=== PATIENT | male | born 1985 | race Two or more races ===

== ENCOUNTER 2021-01-05 14:25 | Observation (INO) ==
--- NOTE | 2021-01-05 14:55 | Emergency Department Note ---
History of Present Illness General Chief complaint: Abdominal Pain Stated complaint: ABD PAIN, REF'D BY DOC Time Seen by Provider: 01/05/21 14:37 History of Present Illness 35-year-old male who presents to the emergency department with outpatient CT scans showing evidence for an uncomplicated appendicitis. The patient reports that he has had right lower quadrant discomfort for many years. He was diagnosed with appendicitis and [place], and treated with antibiotics. For the past week, it has become progressively worsened and more painful with fever and chills over the past few days. He was seen at [facility] where a CT scan was ordered, and later performed at our facility. Dr. Marin, general surgeon on-call, has already been made aware of the situation. The patient rates his discomfort a 4 out of 10. Patient denies history of antibiotic allergies. He did have a negative COVID-19 test 2 days ago. Home Medications Medication Instructions Recorded Confirmed Type No Known Home Medications 01/05/21 01/05/21 History Allergies Allergy/AdvReac Type Severity Reaction Status Date / Time No Known Allergies Allergy Verified 01/05/21 14:52 Past Med/Surg History Medical History No significant past medical history Surgical History No significant past surgical history Social History Smoking Status: Never smoker marital status: Current Living Situation: Spouse and Family current occupational status: employed Feels Safe at Home: Yes Review of Systems 10 system review was performed and was negative except for pertinent positives and negatives as indicated in history of present illness Physical Exam Vital Signs Vital Signs - 24 hr 01/05/21 14:35 01/05/21 16:17 01/05/21 18:17 Temperature 36.8 C Temperature Source Oral Pulse Rate 84 Pulse Rate [Apical] Pulse Rate [Right Finger] 71 53 L Pulse Rhythm [Apical] Pulse Rhythm [Right Finger] Regular Regular Pulse Strength [Right Finger] Normal Normal Respiratory Rate 18 20 20 Respiratory Effort / Characteristics Non-Labored Spontaneous Non-Labored Spontaneous Respiratory Depth Normal Normal Respiratory Pattern Regular Regular Blood Pressure 130/70 Blood Pressure [Left Arm] Blood Pressure [Right Arm] 104/81 112/72 Blood Pressure Mean 90 Blood Pressure Mean [Left Arm] Blood Pressure Mean [Right Arm] 88 85 Blood Pressure Position [Left Arm] Blood Pressure Position [Right Arm] Sitting Sitting Pulse Oximetry 98 97 98 Oxygen Delivery Method Room Air Room Air Room Air Sepsis Recent Fever Within 48 Hours No Sepsis New/Unexplained Change in Mental Status No Sepsis Action Taken by Nursing No Action Required 01/05/21 21:27 01/05/21 21:35 01/05/21 21:45 Temperature 36.4 C L 36.5 C Temperature Source Axillary Axillary Pulse Rate Pulse Rate [Apical] 65 53 L 55 L Pulse Rate [Right Finger] Pulse Rhythm [Apical] Regular Regular Regular Pulse Rhythm [Right Finger] Pulse Strength [Right Finger] Respiratory Rate 14 18 18 Respiratory Effort / Characteristics Non-Labored Spontaneous Non-Labored Spontaneous Non-Labored Spontaneous Respiratory Depth Normal Normal Normal Respiratory Pattern Regular Regular Regular Blood Pressure Blood Pressure [Left Arm] 116/74 111/69 112/64 Blood Pressure [Right Arm] Blood Pressure Mean Blood Pressure Mean [Left Arm] 88 83 80 Blood Pressure Mean [Right Arm] Blood Pressure Position [Left Arm] Lying Lying Lying Blood Pressure Position [Right Arm] Pulse Oximetry 97 96 96 Oxygen Delivery Method Room Air Room Air Room Air Sepsis Recent Fever Within 48 Hours Sepsis New/Unexplained Change in Mental Status Sepsis Action Taken by Nursing 01/05/21 21:55 Temperature 36.5 C Temperature Source Axillary Pulse Rate Pulse Rate [Apical] 58 L Pulse Rate [Right Finger] Pulse Rhythm [Apical] Regular Pulse Rhythm [Right Finger] Pulse Strength [Right Finger] Respiratory Rate 18 Respiratory Effort / Characteristics Non-Labored Spontaneous Respiratory Depth Normal Respiratory Pattern Regular Blood Pressure Blood Pressure [Left Arm] 105/66 Blood Pressure [Right Arm] Blood Pressure Mean Blood Pressure Mean [Left Arm] 79 Blood Pressure Mean [Right Arm] Blood Pressure Position [Left Arm] Lying Blood Pressure Position [Right Arm] Pulse Oximetry 96 Oxygen Delivery Method Room Air Sepsis Recent Fever Within 48 Hours Sepsis New/Unexplained Change in Mental Status Sepsis Action Taken by Nursing CONSTITUTIONAL: Healthy and well nourished. Patient does not appear in any acute distress. HEENT: Normocephalic, atraumatic. Pupils equal, round and reactive. No scleral icterus or conjunctival injection/pallor. NECK: Full active range of motion without discomfort. LYMPHATICS: No cervical chain adenopathy. RESPIRATORY: Clear to auscultation bilaterally with no wheezing, crackles, rhonchi or stridor. CARDIOVASCULAR: Regular rate and rhythm with no murmurs, rubs or gallops. GASTROINTESTINAL: Bowel sounds present in all quadrants. Patient has positive McBurney's point tenderness. Negative CVA tenderness. No abdominal rigidity, guarding or rebound. MUSCULOSKELETAL: Full range of motion of all joints without discomfort. INTEGUMENTARY: No rash or other significant dermatologic conditions noted. HEMATOLOGIC: No ecchymosis or petechiae. PSYCHIATRIC: Positive affect. NEUROLOGIC: No focal neurologic deficits noted. Course Course Patient history and physical exam were performed. Nurses notes were reviewed. Vital signs were reviewed and were normal. I did review outpatient CT imaging that was read this morning at 8:45 AM, showing a thickened appendix with periappendiceal stranding, suggestive of an uncomplicated acute appendicitis. IV access was established, and labs were drawn, including a repeat COVID-19 PCR test. The patient was hydrated with a liter normal saline. He refused any analgesics or antiemetics. Review of labs shows no elevated white count. CMP is also grossly normal. Covid PCR test was also collected and was negative. I also reviewed CT imaging from earlier today, confirming an uncomplicated appendicitis. Consultation was made with Dr. Marin, who came to the emergency department for further evaluation. Please see his dictation for further surgical management and final disposition. Administered Medications Discontinued Medications Bupivacaine HCl (Bupivacaine 0.5 % 5 Mg/1 Ml Mpf 30ml Vial) Confirm Administered Dose 30 ml .ROUTE .STHybrigenics-MED ONE Stop: 01/05/21 19:22 Last Admin: 01/05/21 21:12 Dose: 25 ml Documented by: [id number] Cefoxitin Sodium (Mefoxin) 2,000 mg in 60 mls @ 100 mls/hr IV NOW STA Stop: 01/05/21 17:04 Last Infusion: 01/05/21 18:19 Dose: 0 mls/hr Documented by: [id number] Admin: 01/05/21 17:06 Dose: 100 mls/hr Documented by: [id number] Medical Decision Making Medical Records Attestation: I reviewed the patient's medical records. Home Medications Current Medication List: was personally reviewed by me Laboratory Data Attestation: I reviewed the patient's lab results. Result diagrams: 01/05/21 15:04 01/05/21 15:04 Lab Results 01/05/21 01/05/21 01/05/21 Range/Units 15:04 15:04 15:10 WBC 8.07 (4.8-10.8) K/uL RBC 4.84 (4.7-6.1) M/uL Hgb 13.6 L (14.0-18.0) g/dL Hct 39.8 L (42-52) % MCV 82.2 (80-100) fL MCH 28.1 (25-34) pg MCHC 34.2 (32-36) g/dL RDW Std Deviation 38.8 (36.4-46.3) fL RDW Coeff of Minnie 12.9 (11.5-14.5) % Plt Count 299 (130-400) K/uL MPV 9.0 (7.4-10.4) fL Immature Gran % (Auto) 0.6 % Neut % (Auto) 63.7 % Lymph % (Auto) 26.3 % [place] % (Auto) 8.3 % Eos % (Auto) 1.0 % Baso % (Auto) 0.1 % Neut # (Auto) 5.14 (1.4-6.5) K/uL Lymph # (Auto) 2.12 (1.2-3.4) K/uL [place] # (Auto) 0.67 H (0.11-0.59) K/uL Eos # (Auto) 0.08 (0-0.5) K/uL Baso # (Auto) 0.01 (0-0.2) K/uL Immature Gran # (Auto) 0.05 H (0.00-0.02) K/uL Sodium 137 (136-145) mmol/L Potassium 3.6 (3.5-5.1) mmol/L Chloride 105 (98-107) mmol/L Carbon Dioxide 26 (21-32) mmol/L Anion Gap 6.0 (3-11) BUN 10 (7-18) mg/dl Creatinine 0.84 (0.6-1.4) mg/dl Est Cr Clr Drug Dosing 126.7 ml/min Est GFR ( Amer) 131.5 ml/min Est GFR (Non-Af Amer) 113.4 ml/min BUN/Creatinine Ratio 11.5 (10-20) Glucose 103 H (70-99) mg/dl Calcium 9.3 (8.5-10.1) mg/dl Total Bilirubin 0.6 (0.2-1) mg/dl AST 35 (15-37) U/L ALT 69 (12-78) U/L Alkaline Phosphatase 98 (45-117) U/L Total Protein 8.6 H (6.4-8.2) gm/dl Albumin 4.1 (3.4-5.0) gm/dl Globulin 4.5 H (2.5-4.0) gm/dl Albumin/Globulin Ratio 0.9 (0.9-2) COVID-19 Eval Order Covid19 at [facility] SARS-CoV-2 (PCR) (Negative) 01/05/21 Range/Units 15:10 WBC (4.8-10.8) K/uL RBC (4.7-6.1) M/uL Hgb (14.0-18.0) g/dL Hct (42-52) % MCV (80-100) fL MCH (25-34) pg MCHC (32-36) g/dL RDW Std Deviation (36.4-46.3) fL RDW Coeff of Minnie (11.5-14.5) % Plt Count (130-400) K/uL MPV (7.4-10.4) fL Immature Gran % (Auto) % Neut % (Auto) % Lymph % (Auto) % [place] % (Auto) % Eos % (Auto) % Baso % (Auto) % Neut # (Auto) (1.4-6.5) K/uL Lymph # (Auto) (1.2-3.4) K/uL [place] # (Auto) (0.11-0.59) K/uL Eos # (Auto) (0-0.5) K/uL Baso # (Auto) (0-0.2) K/uL Immature Gran # (Auto) (0.00-0.02) K/uL Sodium (136-145) mmol/L Potassium (3.5-5.1) mmol/L Chloride (98-107) mmol/L Carbon Dioxide (21-32) mmol/L Anion Gap (3-11) BUN (7-18) mg/dl Creatinine (0.6-1.4) mg/dl Est Cr Clr Drug Dosing ml/min Est GFR ( Amer) ml/min Est GFR (Non-Af Amer) ml/min BUN/Creatinine Ratio (10-20) Glucose (70-99) mg/dl Calcium (8.5-10.1) mg/dl Total Bilirubin (0.2-1) mg/dl AST (15-37) U/L ALT (12-78) U/L Alkaline Phosphatase (45-117) U/L Total Protein (6.4-8.2) gm/dl Albumin (3.4-5.0) gm/dl Globulin (2.5-4.0) gm/dl Albumin/Globulin Ratio (0.9-2) COVID-19 Eval Order SARS-CoV-2 (PCR) NEGATIVE (Negative) Imaging Data Attestation: I personally reviewed and interpreted this imaging study as follows: My Impression: My interpretation of a CT with IV and oral contrast of the abdomen and pelvis confirms an uncomplicated acute appendicitis. No evidence for bowel obstruction or free air. Radiologist report was also reviewed, and included below for reader convenience. Radiologist's Impression: CT abd pelvis oral and IV con CLINICAL HISTORY: RLQ ABDOMINAL PAIN, FEELS FEVERISH COMPARISON STUDY: None. TECHNIQUE: The patient was scanned following administration of dilute oral contrast, and in a dynamic helical fashion during intravenous administration of 94 cc of Optiray 320 A dose lowering technique was utilized adhering to the principles of ALARA. CT DOSE: 353.54 mGy.cm FINDINGS: Lower chest: The heart is normal in size and configuration, without pericardial effusion. The lung bases and pleural spaces are clear. Liver: The contrast-enhanced liver is normal in size, contour, and attenuation. There is no intrahepatic biliary ductal dilatation. The hepatic veins and portal veins are patent. Gallbladder: Unremarkable. Spleen: Normal in size and attenuation. Pancreas: Unremarkable. Adrenal glands: Unremarkable. Kidneys: There is symmetric renal cortical enhancement. The kidneys are normal in size without hydronephrosis. Bowel: There are no transition zones indicate bowel obstruction. There is no evidence of acute diverticulitis. There is a thickened appendix measuring up to 12 mm in diameter with periappendiceal stranding. The findings are indicative of acute appendicitis and surgical consultation is recommended. Peritoneum: There is no intraperitoneal free air or abdominal ascites. Vasculature: The abdominal aorta is normal in course and caliber. Adenopathy: None. Pelvic viscera: The bladder, and pelvic viscera are unremarkable. Skeletal structures: No destructive osseous lesions are seen. IMPRESSION: 1. Thickened appendix with periappendiceal stranding. In the setting of right lower quadrant abdominal pain, the findings are indicative of acute appendicitis. Surgical consultation is recommended. ACT 112: Negative or not required by law. Electronically signed by: Luis E Fernandez M.D. 01/05/2021 8:59 AM Blood Pressure Blood Pressure Findings: Normal blood pressure MDM Narrative Patient presents to emergency department with complaint of right lower quadrant abdominal pain over the past week. The patient did have a fever over the past few days. Fortunately, his outpatient CT imaging this morning does not show evidence for bowel perforation or abscess. Additional imaging findings are not suggestive of bowel obstruction, perforation or other acute intra-abdominal findings. Laboratory studies are also not suggestive of pancreatitis, cholecystitis or hepatitis. Impression & Plan Acute appendicitis Discharge Plan Visit Data Chief Complaint: Abdominal Pain Stated Complaint: ABD PAIN, REF'D BY DOC ED Provider: Billy Stark ED Midlevel Provider: Eric Xiong Discharge Problem: Acute appendicitis Discharge Instructions Interventions: ED Discharge Assessment Last Done: 01/05/21 18:30 Discharge Problem: Acute appendicitis Qualifiers: Acute appendicitis type: with localized peritonitis Appendicitis gangrene presence: without gangrene Appendicitis perforation presence: without perforatio n Appendicitis abscess presence: without abscess Qualified Code(s): K35.30 - Acute appendicitis with localized peritonitis, without perforation or gangrene
[2021-01-05 15:16] LABS: Basophils # (auto) 0.01 K/uL (0-0.2); Basophils % (auto) 0.1 %; Eosinophils # (auto) 0.08 K/uL (0-0.5); Hematocrit (blood only) 39.8 % (42-52); Hemoglobin 13.6 g/dL (14.0-18.0); Immature Granulocytes # (auto) 0.05 K/uL (0.00-0.02); Immature Granulocytes % (auto) 0.6 %; Lymphocytes # (auto) 2.12 K/uL (1.2-3.4); Lymphocytes % (auto) 26.3 %; Mean Corpuscular Hemoglobin 28.1 pg (25-34); Mean Corpuscular Hgb Conc 34.2 g/dL (32-36); Mean Corpuscular Volume 82.2 fL (80-100); Monocytes # (auto) 0.67 K/uL (0.11-0.59); Monocytes % (auto) 8.3 %; Neutrophils # (auto) 5.14 K/uL (1.4-6.5); Neutrophils % (auto) 63.7 %; Platelet Count 299 K/uL (130-400); RDW Coefficient of Variation 12.9 % (11.5-14.5); RDW Standard Deviation 38.8 fL (36.4-46.3); Red Blood Count 4.84 M/uL (4.7-6.1); White Blood Count 8.07 K/uL (4.8-10.8)
[2021-01-05 15:32] LABS: Albumin Level 4.1 gm/dl (3.4-5.0); BUN Creatinine Ratio 11.5 (10-20); Calcium 9.3 mg/dl (8.5-10.1); Creatinine Clr Calc Pharmacy 126.7 ml/min; Est GFR (African American) 131.5 ml/min; Est GFR (Non-African American) 113.4 ml/min; Potassium 3.6 mmol/L (3.5-5.1)
[2021-01-05 15:35] LABS: Albumin Globulin Ratio 0.9 (0.9-2); Bilirubin,Total 0.6 mg/dl (0.2-1); Globulin 4.5 gm/dl (2.5-4.0); Total Protein 8.6 gm/dl (6.4-8.2)
--- NOTE | 2021-01-05 16:27 | History & Physical Report ---
Date of Service January 05, 2021 Assessment & Plan (1) Acute appendicitis: 35-year-old male with history of intermittent right lower quadrant pain, now with CT findings consistent with acute appendicitis. His WBC is normal and he is tender to palpation but his symptoms are quite mild at this time. This may be secondary to the fact that his appendix appears to be retrocecal on imaging. We discussed his options to include surgery, antibiotics, or observation with follow-up as an outpatient. At this point the patient elects for surgery. Plan for laparoscopic appendectomy The risk the procedure were discussed to include but not limited to bleeding, infection, conversion open, damage surrounding structures, normal appendix, need for future more extensive surgery, failure to treat symptoms, and the risk of anesthesia Preop antibiotics Likely keep for overnight observation with discharge in the morning The diagnosis, details of the procedure and recovery, and plan of care were discussed with the patient, all questions were answered, the patient expressed understanding agrees with plan of care as stated History of Present Illness Primary Care Provider: [facility] 35-year-old male here for concern for acute appendicitis. 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 When he was 20 he was diagnosed with acute [place]icit[place] in [place] and treated with antibiotics. Ever since then he has had intermittent right lower quadrant abdominal pain similar to his first episode. This is becoming more frequent. On Friday he had significant pain along with a fever and chills as well as some vomiting. The pain did improve, but he had a CT scan this morning which showed a dilated appendix with failure to fill with oral contrast and periappendiceal inflammation. His PCP informed him of the results and after talking with me we recommended transfer to the emergency department. He states currently he is having some discomfort but is much better than on Friday. He did have loose stool associated with the oral contrast he drank this morning. He is otherwise healthy and not on any blood thinners. He did eat a light lunch of vegetables at 12-1 o'clock. Allergies Allergy/AdvReac Type Severity Reaction Status Date / Time No Known Allergies Allergy Verified 01/05/21 14:52 Home Medications Medication Instructions Recorded Confirmed Type No Known Home Medications 01/05/21 01/05/21 History Past Med/Surg History Medical History No significant past medical history Surgical History No significant past surgical history Social History Smoking Status: Never smoker marital status: Current Living Situation: Spouse and Family current occupational status: employed Feels Safe at Home: Yes Review of Systems Review of Systems: All systems reviewed & are unremarkable except as noted in HPI & below Physical Exam Constitutional: WD/WN, vitals as above Respiratory: normal respiratory effort, lungs clear to auscultation Cardiovascular: RRR, no murmur, no edema Gastrointestinal (Abdomen): Percussion/Palpation: + abdomen tender (Tender to palpation in the right lower quadrant) and abdomen soft; no guarding, abdomen not rigid, no hepatosplenomegaly and no hernia Results & Data Results & Data ([facility]) Vital Signs (Past 12 Hours) Vital Signs Temp Pulse Pulse Resp BP BP Pulse Ox 01/05/21 16:17 71 20 104/81 97 01/05/21 14:35 36.8 C 84 18 130/70 98 Laboratory Results Laboratory Results - last 24 hr 01/05/21 01/05/21 01/05/21 15:04 15:04 15:10 WBC 8.07 RBC 4.84 Hgb 13.6 L Hct 39.8 L MCV 82.2 MCH 28.1 MCHC 34.2 RDW Std Deviation 38.8 RDW Coeff of Minnie 12.9 Plt Count 299 MPV 9.0 Immature Gran % (Auto) 0.6 Neut % (Auto) 63.7 Lymph % (Auto) 26.3 [place] % (Auto) 8.3 Eos % (Auto) 1.0 Baso % (Auto) 0.1 Neut # (Auto) 5.14 Lymph # (Auto) 2.12 [place] # (Auto) 0.67 H Eos # (Auto) 0.08 Baso # (Auto) 0.01 Immature Gran # (Auto) 0.05 H Sodium 137 Potassium 3.6 Chloride 105 Carbon Dioxide 26 Anion Gap 6.0 BUN 10 Creatinine 0.84 Est Cr Clr Drug Dosing 126.7 Est GFR ( Amer) 131.5 Est GFR (Non-Af Amer) 113.4 BUN/Creatinine Ratio 11.5 Glucose 103 H Calcium 9.3 Total Bilirubin 0.6 AST 35 ALT 69 Alkaline Phosphatase 98 Total Protein 8.6 H Albumin 4.1 Globulin 4.5 H Albumin/Globulin Ratio 0.9 COVID-19 Eval Order Covid19 at [facility] SARS-CoV-2 (PCR) 01/05/21 15:10 WBC RBC Hgb Hct MCV MCH MCHC RDW Std Deviation RDW Coeff of Minnie Plt Count MPV Immature Gran % (Auto) Neut % (Auto) Lymph % (Auto) [place] % (Auto) Eos % (Auto) Baso % (Auto) Neut # (Auto) Lymph # (Auto) [place] # (Auto) Eos # (Auto) Baso # (Auto) Immature Gran # (Auto) Sodium Potassium Chloride Carbon Dioxide Anion Gap BUN Creatinine Est Cr Clr Drug Dosing Est GFR ( Amer) Est GFR (Non-Af Amer) BUN/Creatinine Ratio Glucose Calcium Total Bilirubin AST ALT Alkaline Phosphatase Total Protein Albumin Globulin Albumin/Globulin Ratio COVID-19 Eval Order SARS-CoV-2 (PCR) NEGATIVE Diagnostic Findings CT abd pelvis oral and IV con CLINICAL HISTORY: RLQ ABDOMINAL PAIN, FEELS FEVERISH COMPARISON STUDY: None. TECHNIQUE: The patient was scanned following administration of dilute oral contrast, and in a dynamic helical fashion during intravenous administration of 94 cc of Optiray 320 A dose lowering technique was utilized adhering to the principles of ALARA. CT DOSE: 353.54 mGy.cm FINDINGS: Lower chest: The heart is normal in size and configuration, without pericardial effusion. The lung bases and pleural spaces are clear. Liver: The contrast-enhanced liver is normal in size, contour, and attenuation. There is no intrahepatic biliary ductal dilatation. The hepatic veins and portal veins are patent. Gallbladder: Unremarkable. Spleen: Normal in size and attenuation. Pancreas: Unremarkable. Adrenal glands: Unremarkable. Kidneys: There is symmetric renal cortical enhancement. The kidneys are normal in size without hydronephrosis. Bowel: There are no transition zones indicate bowel obstruction. There is no evidence of acute diverticulitis. There is a thickened appendix measuring up to 12 mm in diameter with periappendiceal stranding. The findings are indicative of acute appendicitis and surgical consultation is recommended. Peritoneum: There is no intraperitoneal free air or abdominal ascites. Vasculature: The abdominal aorta is normal in course and caliber. Adenopathy: None. Pelvic viscera: The bladder, and pelvic viscera are unremarkable. Skeletal structures: No destructive osseous lesions are seen. IMPRESSION: 1. Thickened appendix with periappendiceal stranding. In the setting of right lower quadrant abdominal pain, the findings are indicative of acute appendicitis. Surgical consultation is recommended. PG Care Time/CCT Total # of Minutes Spent Total Time Spent with Patient: Total time spent is greater than 50% in coordination of care (as documented) at patient's floor/unit and/or counseling patient: Coding Level of Care Code 16728 OBS Care - Level 2 Diagnoses Acute appendicitis K35.30 Acute appendicitis type: with localized peritonitis Appendicitis abscess presence: without abscess Appendicitis gangrene presence: without gangrene Appendicitis perforation presence: without perforation (1) Acute appendicitis Acute appendicitis type: with localized peritonitis Appendicitis abscess presence: without abscess Appendicitis gangrene presence: without gangrene Appendicitis perforation presence: without perforation Qualified Code(s): K35.30 - Acute appendicitis with localized peritonitis, without perforation or gangrene
[2021-01-05] MEDS ORDERED: cefOXitin 2,000 MG/60 ML BAG IV STA (16:29)
[2021-01-05] MEDS ORDERED: PROMETHAZINE HCL 12.5 MG in SODIUM CHLORIDE 0.9% 50 ML IV PRN (19:08)
[2021-01-05] MEDS ORDERED: HYDROmorphone INJ 2 MG/ML SYR/VIAL IV PRN (19:08)
[2021-01-05] MEDS ORDERED: ePHEDrine sulfate 50 MG/ML AMP IV PRN (19:08)
[2021-01-05] MEDS ORDERED: ATROPINE SULFATE 0.1 MG/ML 10ML SYR IV PRN (19:08)
[2021-01-05] MEDS ORDERED: fentaNYL citrate 100 MCG/2 ML VIAL IV PRN (19:08)
[2021-01-05] MEDS ORDERED: ONDANSETRON INJ 2 MG/ML 2 ML VIAL IV PRN ×2 (19:08→22:20)
--- NOTE | 2021-01-05 19:08 | Anesthesiology Consultation ---
Date of Service January 05, 2021 Assessment & Plan ASA ASA2 Proposed Anesthesia Anesthesia Type: General Risk / Benefits Reviewed With: PT / POA / Parent / Guardian, Accepts Plan and Informed Consent Obtained History Surgery Operation Date: 01/05/21 19:30 Proposed Procedures p Laparoscopic Appendectomy(Not Applicable) - Reji Marin DO, FACS Height/Weight Height: 5 ft 10 in Weight: 82.2 kg Allergies Allergy/AdvReac Type Severity Reaction Status Date / Time No Known Allergies Allergy Verified 01/05/21 14:52 Medications Home Medications Medication Instructions Recorded Confirmed Last Taken No Known Home Medications 01/05/21 01/05/21 Unknown NPO Date Last Intake of Fluids: 01/05/21 Time Last Intake of Fluids: 13:00 Last Intake of Fluids Comment: tea Date Last Intake of Solids: 01/05/21 Time Last Intake of Solids: 13:00 Last Intake of Solids Comment: vegetables with bread Past Medical History Medical History No significant past medical history Exercise / Class Metabolic Activity II 4-5 Yardwork/Stairs/Walk up hill Past Surgical History Surgical History No significant past surgical history Past Anesthesia History No Hx of Anesthesia Complications and No Family Hx of Anesthesia Complications History of PONV No Hx of PONV and No Hx of Motion Sickness Social History Smoking Status: Never smoker Review of Systems denies fever/cough/ colds/ chest pain/ SOB/ BRIAN denies BRIAN Physical Exam Vital Signs Last Vital Signs Temp 36.8 C 01/05/21 14:35 Pulse 53 L 01/05/21 18:17 Resp 20 01/05/21 18:17 BP 112/72 01/05/21 18:17 Pulse Ox 98 01/05/21 18:17 ENMT Mouth: no TMJ abnormality and no dentition abnormality Thyromental Distance: > or= 3.5 Finger Breadths Mallampati Class: II Neck neck extension not limited Respiratory normal respiratory effort; no respiratory distress Auscultation: lungs clear to auscultation bilaterally Cardiovascular Rate/Rhythm: regular rate and regular rhythm Neurologic moves all extremities Psychiatric Orientation: alert and oriented x 3 Testing Laboratory Results 01/05/21 15:04 01/05/21 15:04
[2021-01-05] MEDS ORDERED: fentaNYL citrate 100 MCG/2 ML VIAL ONE ×2 (19:14→20:31)
[2021-01-05] MEDS ORDERED: MIDAZOLAM HCL 1 MG/ML 2ML VIAL ONE (19:14)
[2021-01-05] MEDS ORDERED: DEXAMETHASONE SOD INJ 4 MG/ML VIAL ONE (19:21)
[2021-01-05] MEDS ORDERED: PROPOFOL IV EMULSION 10 MG/ML 20 ML VIAL IV ONE (19:21)
[2021-01-05] MEDS ORDERED: SUCCINYLCHOLINE CHLORIDE 20 MG/ML 10 ML VIAL IV ONE (19:21)
[2021-01-05] MEDS ORDERED: ROCURONIUM BROMIDE 10 MG/ML 5 ML VIAL IV ONE (19:21)
[2021-01-05] MEDS ORDERED: ONDANSETRON INJ 2 MG/ML 2 ML VIAL ONE (19:21)
[2021-01-05] MEDS ORDERED: BUPIVACAINE 0.5 % 5 MG/1 ML MPF 30ML VIAL ONE (19:21)
[2021-01-05] MEDS ORDERED: KETOROLAC 30 MG/ML VIAL ONE (20:32)
[2021-01-05] MEDS ORDERED: NEOSTIGMINE METHYLSULFATE 1 MG/ML 10ML VIAL ONE (20:34)
[2021-01-05] MEDS ORDERED: GLYCOPYRROLATE 0.2 MG/ML VIAL ONE (20:34)
--- NOTE | 2021-01-05 21:16 | Operative Report ---
PG Post Operative Report Pre & Post Diagnosis Operation Date: 01/05/21 19:30 Pre-Op Diagnosis: Acute appendicitis Post-Op Diagnosis: Acute appendicitis I identified the patient and participated in the time-out.: Yes Procedure Operation Date: 01/05/21 19:30 Actual Procedures p Laparoscopic Appendectomy(Not Applicable) - Reji Marin DO, ROSAMARIA Surgeon Reji Marin DO, ROSAMARIA Guest Advisor [place] Estimated Blood Loss 10 Findings Consistent with Post-Op Diagnosis Dilated and inflamed tip of the appendix densely adhesed to the retrocecal lateral abdominal wall. Good hemostasis. Specimens Appendix Anesthesia Type General Complications none Disposition Accompanied Patient To Recovery: No Disposition: Recovery Room Indications 35-year-old male with history of suspected appendicitis treated with antibiotics 15 years ago and intermittent right lower quadrant abdominal pain since. This morning he underwent a CT scan which showed dilation of the appendix with lack of filling with contrast and periappendiceal fluid consistent with acute appendicitis. He was sent to the emergency department where his white blood cell count was normal. We discussed his options to include observation versus antibiotics versus surgery. The patient desires surgery. Plan for laparoscopic appendectomy. The risks of the procedure were discussed, all questions were answered, and the patient agreed to proceed with surgery as planned. Description of Procedure The patient was properly identified, consented, and taken to the operating room where he was placed in the supine position. General endotracheal anesthesia was induced. SCDs and a safety belt were placed. Preoperative antibiotics were administered. A Lares catheter was placed. The patient's abdomen was prepped and draped in the standard sterile fashion. Surgical timeout was performed and all parties were in agreement that this was the correct patient and procedure to be performed and we continued as planned. A curvilinear infraumbilical incision was made with electrocautery and deepened down to the fascia with blunt dissection. The base of the umbilicus was grasped with a Dayna and elevated towards the ceiling. An incision was made in the midline fascia with a knife and entry into the peritoneum was confirmed. Stay suture of 0 Vicryl was placed and a Márquez trocar was inserted. The abdomen was insufflated with carbon dioxide which the patient tolerated without incident. The laparoscope was inserted and no damage from initial trocar placement was noted, no gross abnormalities were noted within the 4 quadrants the abdomen. 5 mm ports were then placed in the left lower quadrant with care not to damage the epigastric vessels, and in the suprapubic midline with care not to damage the bladder. The patient was placed in Trendelenburg position and rotated towards the left. The small bowel was swept away from the right lower quadrant. The cecum was grasped with an atraumatic grasper exposing the appendix. The base of the appendix was slightly dilated but appeared healthy. The appendix was partially retrocecal. There was no evidence of perforation. There was no fluid in the pelvis. A window was created between the base of the appendix and the mesoappendix. A ray loaded endoscopic stapler was then used to divide the appendix at its base. The tip of the appendix was curled on itself and showed signs of acute and chronic inflammation. It was densely adherent to the retrocecal lateral abdominal wall. Harmonic scalpel was utilized to divide the mesoappendix along the course of the appendix. The tip of the appendix was dissected away from the abdominal wall using blunt dissection, suction dissection, and harmonic. Hemostasis was good. The appendix was placed in an Endo Catch bag and removed through the umbilical port site. The right lower quadrant and pelvis was irrigated and hemostasis was found to be good. 5 mm trochars were removed under direct visualization and the abdomen was allowed to collapse. The umbilical port site fascia was closed with 0 Vicryl suture. The wound was irrigated, and the skin of all ports was closed with 4-0 Monocryl subcuticular sutures. Dermabond was placed over the wounds. The patient's Lares was removed and he was extubated in the operating room and taken to the PACU where he recovered without apparent incident. All sponge, instrument and needle counts were correct at the conclusion of the procedure. The patient tolerated the procedure well. The physician's clinical data assistant was present and scrubbed for the entire to the case. He was critical in positioning the patient, prepping and draping, retraction and exposure, driving the laparoscope, removal of the appendix, closure the incisions, and placement of the dressings. I attest to the content of the Intraoperative Record and any orders documented therein. Any exceptions are noted below.
--- NOTE | 2021-01-05 22:15 | Anesthesiology Progress Note ---
Date of Service January 05, 2021 Anesthesia Post Procedure Vital Signs Vital Signs: Temp Pulse Pulse Pulse Resp BP BP 01/05/21 21:55 36.5 C 58 L 18 105/66 01/05/21 21:45 36.5 C 55 L 18 112/64 01/05/21 21:35 53 L 18 111/69 01/05/21 21:27 36.4 C L 65 14 116/74 01/05/21 18:17 53 L 20 01/05/21 16:17 71 20 01/05/21 14:35 36.8 C 84 18 130/70 BP Pulse Ox 01/05/21 21:55 96 01/05/21 21:45 96 01/05/21 21:35 96 01/05/21 21:27 97 01/05/21 18:17 112/72 98 01/05/21 16:17 104/81 97 01/05/21 14:35 98 Pain Intensity Right Abdomen: Pain Intensity: 3 Transfer of Care Handoff Completed per policy Notes Mental Status: alert / awake / arousable and participated in evaluation Patient Amnestic to Procedure: Yes Nausea / Vomiting: adequately controlled Pain: adequately controlled Airway Patency, RR, SpO2: stable & adequate BP & HR: stable & adequate Hydration State: stable & adequate Anesthetic Complications: no major complications apparent and Pt Satisfied with anesthetic care
[2021-01-05] MEDS ORDERED: oxyCODONE HCL IR 5 MG TAB (IMMEDIATE RELEASE) PO PRN (22:20)
[2021-01-05] MEDS ORDERED: MoRPHine SULFATE 4 MG/ML 1 ML CARP\\VIAL IV PRN (22:20)
[2021-01-05] MEDS: LACTATED RINGER'S 1,000 ML IV SCH (23:24)
[2021-01-05] MEDS: ACETAMINOPHEN 1,000 MG/100 ML VIAL IV SCH (23:25)
[2021-01-06] MEDS: cefOXitin 2,000 MG in DEXTROSE 5% 50 ML IV SCH ×3 (05:15→11:16)
[2021-01-06] MEDS: ACETAMINOPHEN 1,000 MG/100 ML VIAL IV SCH (05:52)
--- NOTE | 2021-01-06 05:52 | Surgery Progress Note ---
Date of Service January 06, 2021 Assessment & Plan (1) Acute appendicitis: Postoperative day #1 laparoscopic appendectomy We will continue advance patient's diet and if this is tolerated we will plan on discharge home later today Antibiotics not be required at time of discharge Admission and Anticipated Discharge Date Admission Date: January 05, 2021 Supervising Physician Co-Signing Physician Notes pnt s&e, agree with above. POD#1 lap appy for acute on chronic appendicitis. doing well, no pain, waiting for breakfast. abd soft, nt, nd. incisions w/o infection. d/c today if tolerates diet. f/u in 2 weeks, wound care instructions and activity restrictions reviewed. Subjective Patient is resting comfortably in bed. He notes some abdominal tenderness near surgical incisions but overall his abdomen feels better. He denies any nausea or vomiting. He denies any fevers, shakes, chills. Since his surgery he has had some clear liquids which he tolerated well without worsening abdominal pain or precipitating any nausea or vomiting. Physical Exam Gastrointestinal (Abdomen): Abdomen is soft and nondistended. Bowel sounds are hypoactive. Surgical incisions are clean dry and intact. There is minor pain with palpation near her surgical incisions. Results & Data ([facility]) Vital Signs (Past 12 Hours) Vital Signs Temp Pulse Pulse Resp BP BP Pulse Ox 01/06/21 01:15 36.6 C 85 16 97/58 L 96 01/06/21 00:15 36.7 C 79 16 99/59 L 97 01/05/21 23:15 36.7 C 73 16 101/62 98 01/05/21 22:45 36.7 C 76 16 100/62 96 01/05/21 22:15 36.4 C L 61 14 109/72 97 01/05/21 21:55 36.5 C 58 L 18 105/66 96 01/05/21 21:45 36.5 C 55 L 18 112/64 96 01/05/21 21:35 53 L 18 111/69 96 01/05/21 21:27 36.4 C L 65 14 116/74 97 01/05/21 18:17 53 L 20 112/72 98 PG Care Time/CCT Total # of Minutes Spent Total Time Spent with Patient: Total time spent is greater than 50% in coordination of care (as documented) at patient's floor/unit and/or counseling patient: Coding Level of Care Code None Diagnoses Acute appendicitis K35.30 Acute appendicitis type: with localized peritonitis Appendicitis abscess presence: without abscess Appendicitis gangrene presence: without gangrene Appendicitis perforation presence: without perforation (1) Acute appendicitis Acute appendicitis type: with localized peritonitis Appendicitis abscess presence: without abscess Appendicitis gangrene presence: without gangrene Appendicitis perforation presence: without perforation Qualified Code(s): K35.30 - Acute appendicitis with localized peritonitis, without perforation or gangrene
[2021-01-06 07:26] VITALS: BP 102/59; PULSE 68; TEMP 97.9; O2SAT 98
[2021-01-06] MEDS: LACTATED RINGER'S 1,000 ML IV SCH (13:59)
--- NOTE | 2021-01-10 09:16 | Discharge Summary ---
Date of Service January 10, 2021 Admission HPI Per Admitting Provider 35-year-old male here for concern for acute appendicitis. 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 When he was 20 he was [place]. Ever since then he has had intermittent right lower quadrant abdominal pain similar to his first episode. This is becoming more frequent. On Friday he had significant pain along with a fever and chills as well as some vomiting. The pain did improve, but he had a CT scan this morning which showed a dilated appendix with failure to fill with oral contrast and per iappendiceal inflammation. His PCP informed him of the results and after talking with me we recommended transfer to the emergency department. He states currently he is having some discomfort but is much better than on Friday. He did have loose stool associated with the oral contrast he drank this morning. He is otherwise healthy and not on any blood thinners. He did eat a light lunch of vegetables at 12-1 o'clock. Principal Diagnosis acute appendicitis Discharge Data Allergies Allergy/AdvReac Type Severity Reaction Status Date / Time No Known Allergies Allergy Verified 01/05/21 14:52 Consultations 01/05/21 14:38 ED Decision to Admit Stat Procedures Performed Operation Date: 01/05/21 19:30 Actual Procedures p Laparoscopic Appendectomy(Not Applicable) - Reji Marin DO, FACS Hospital Course (1) Acute appendicitis: Patient presented to ED after outpatient CT showed acute appendicitis. He was treated with antibiotics for acute appendicitis 15 years prior, and he had recurrent RLQ pain several times since. Saw PCP for severe RLQ pain with fevers, CT was performed. Called back to ED. He underwent uncomplicated laparoscopic appendectomy on 05 January 2021. He was admitted to med-surg for observation overnight. His course was uncomplicated. At the time of discharge he was tolerating a regular diet, his pain was controlled and he was ambulating. He was discharged to home with plans for follow up in the general surgery clinic in 2 weeks. He was given a prescription for pain medications. Wound care instructions, activity restrictions, and return precautions were given. Total Time Total Time Spent Total Time Spent (In Minutes): 30 Total Time Includes: Examination of the Patient, Discharge Planning and Medication Reconciliation Discharge Plan Discharge Items Patient Disposition: Home - Self-Care Reason For Visit: ABD PAIN, REF'D BY DOC Discharge Diagnosis: Appendicitis Condition on Discharge: Good Activity: As commented below Activity Comment: Walk daily Lifting: No more than 10 pounds Bathing: May shower/bathe in 3 days Exercise/Sports: Wait until after follow-up appointment Driving/Machine Use: When cleared by your surgeon Non-emergency contact: Surgeon Call non-emergency contact if: you have any medication questions Follow-up/Referrals: Reji Marin, ROSAMARIA MARTIN [Physician] - 01/12/21 9:30 am (Call office for an appointment in 1-2 weeks) [facility] [Primary Care Provider] - Diet: Regular Addtl Attending Provider Instructions: Call office with questions Pending Studies at Discharge: No Stand-Alone Forms: My [employer], Opioid Pain Management, Smoking Cessation Medications and DC Order Prescriptions: New acetaminophen [Tylenol] 325 mg capsule 650 mg PO Q6H PRN (Reason: fever or pain) Qty: 20 RF: 0 ibuprofen 200 mg capsule 400 mg PO Q6H PRN (Reason: pain) Qty: 20 RF: 0 oxycodone 5 mg tablet 5 mg PO Q6H PRN (Reason: pain) Qty: 10 RF: 0 No Action No Known Home Medications RF: 0 Discharge Orders: Discharge Order (Routine); Ordered 01/06/21 Ordered By: Max Hall Admission Data Admit Date/Time: 01/05/21 21:19 Attending Provider: Reji Marin Admit Provider: Reji Marin Primary Care Provider: [facility] Other Providers: Reji Marin Other Interventions: Discharge Summary Assessment (RN) Last Done: 01/06/21 10:18 Coding Level of Care Code 96055 OBS Care - Discharge Diagnoses Acute appendicitis K35.30 Acute appendicitis type: with localized peritonitis Appendicitis abscess presence: without abscess Appendicitis gangrene presence: without gangrene Appendicitis perforation presence: without perforation
== END 2021-01-06 14:53 | disposition home or self-care (01) ==
LOC: ED 14:25 → 3W 18:35 → OR 18:35